=== PATIENT | female | born 1970 | race Caucasian/White ===

== ENCOUNTER 2022-02-06 12:36 | Emergency (ER) | payer MEDICARE ==
[~2022-02-06] VITALS: Ht 170.2 cm; Wt 75.0 kg
[2022-02-06] VITALS (8 sets, daily range): BP systolic 93–136; BP diastolic 74–89
[2022-02-06] MEDS ORDERED: ULTRAM50 MG PO (15:24)
[2022-02-06] MEDS ORDERED: BACLOFEN20 MG PO (15:26)
== END 2022-02-06 16:08 | disposition home or self-care (01) ==
LOC: ED 12:36
DX: S93.601A Unspecified sprain of right foot, initial encounter (principal); S93.401A Sprain of unspecified ligament of right ankle, initial encounter; X50.0XXA Overexertion from strenuous movement or load, initial encounter; Y92.009 Unspecified place in unspecified non-institutional (private) residence as the place of occurrence of the external cause; Z86.73 Personal history of transient ischemic attack (TIA), and cerebral infarction without residual deficits

== ENCOUNTER 2022-08-13 14:20 | Emergency (ER) | payer MEDICARE ==
[2022-08-13] VITALS (9 sets, daily range): BP systolic 109–134; BP diastolic 74–95
[~2022-08-13] VITALS: Ht 170.2 cm; Wt 54.0 kg
[~2022-08-13 14:20] MED LIST: BACLOFEN20 MG PO; ULTRAM50 MG PO
[2022-08-13 16:46] LABS: HEMATOCRIT 41.1 % (37.0-47.0); MEAN CELL VOLUME 96.9 fL CALC (80.0-100.0); MEAN CORPUSCULAR HGB CONC 34.1 g/dL CAL (32.0-36.0); NEUT# 2.8 thou/uL (2.00-7.15); RED BLOOD COUNT 4.24 mill/uL (4.20-5.60); RED CELL DISTRI WIDTH 12.8 % (11.5-15.5)
[2022-08-13 17:01] LABS: ALBUMIN 4.8 g/dL (3.2-5.0); ALKALINE PHOSPHATASE 63 u/l (38-126); ANION GAP 16 (6-22 (CALC)); BILIRUBIN, TOTAL 0.6 mg/dL (0.0-1.4); BUN 19 mg/dL (7-17); BUN/CREATININE RATIO 19 (12-20 (CALC)); CARBON DIOXIDE 20 mmol/l (22-30); CHLORIDE 106 mmol/l (95-108); GFR FOR AFR.AMER. > 60 ML/MIN (>=60 (CALC)); GFR OTHER RACES 58 ML/MIN (>=60 (CALC)); POTASSIUM 3.9 mmol/l (3.5-5.1); SGOT/AST 33 u/l (14-36); SODIUM 139 mmol/l (137-146); TOTAL PROTEIN 7.7 g/dL (6.3-8.2)
[2022-08-13] MEDS ORDERED: ULTRAM50 M1 PO ×3 (18:17→18:23)
== END 2022-08-13 19:24 | disposition home or self-care (01) ==
LOC: ED 14:20
PROVIDERS: Emergency Medicine
DX: M54.50 Low back pain, unspecified (principal); M54.6 Pain in thoracic spine; Z86.73 Personal history of transient ischemic attack (TIA), and cerebral infarction without residual deficits

== ENCOUNTER 2022-10-13 11:24 | Emergency (ER) | payer MEDICARE ==
[~2022-10-13] VITALS: Ht 170.2 cm; Wt 55.0 kg
[~2022-10-13 11:24] MED LIST changes: +ULTRAM50 M1 PO
[2022-10-13 12:05] LABS: HEMATOCRIT 37.7 % (37.0-47.0); IMMATURE GRANULOCYTES 0.3 % (0.0-5.0); MEAN CORPUSCULAR HGB 34.5 pG CALC (26.0-32.0); MEAN CORPUSCULAR HGB CONC 34.5 g/dL CAL (32.0-36.0); NEUT# 4.57 thou/uL (2.00-7.15); RED BLOOD COUNT 3.77 mill/uL (4.20-5.60); RED CELL DISTRI WIDTH 12.7 % (11.5-15.5)
[2022-10-13 12:20] LABS: ALBUMIN 4.7 g/dL (3.2-5.0); ALKALINE PHOSPHATASE 60 u/l (38-126); ANION GAP 16 (6-22 (CALC)); BUN 14 mg/dL (7-17); BUN/CREATININE RATIO 16 (12-20 (CALC)); CARBON DIOXIDE 22 mmol/l (22-30); CHLORIDE 108 mmol/l (95-108); CREATININE 0.9 mg/dL (0.5-1.0); GFR FOR AFR.AMER. > 60 ML/MIN (>=60 (CALC)); GFR OTHER RACES > 60 ML/MIN (>=60 (CALC)); POTASSIUM 4.3 mmol/l (3.5-5.1); SGOT/AST 26 u/l (14-36); SODIUM 142 mmol/l (137-146); TOTAL PROTEIN 7.2 g/dL (6.3-8.2)
[2022-10-13 12:24] LABS: BILIRUBIN, TOTAL 1.1 mg/dL (0.0-1.4)
[2022-10-13] MEDS ORDERED: XANAX0.5 MG PO (12:54)
[2022-10-13] MEDS ORDERED: XANAX1 MG PO (12:54)
[2022-10-13 13:00] VITALS: BP 133/97
[2022-10-13 13:38] VITALS: BP 121/88
[2022-10-13 14:00] VITALS: BP 139/97
[2022-10-13 14:30] VITALS: BP 115/81
[2022-10-13 15:00] VITALS: BP 115/81
== END 2022-10-13 15:00 | disposition short-term general hospital (02) ==
LOC: ED 11:24
PROVIDERS: Family Medicine
DX: S72.001A Fracture of unspecified part of neck of right femur, initial encounter for closed fracture (principal); W01.0XXA Fall on same level from slipping, tripping and stumbling without subsequent striking against object, initial encounter; Y92.009 Unspecified place in unspecified non-institutional (private) residence as the place of occurrence of the external cause; Z86.73 Personal history of transient ischemic attack (TIA), and cerebral infarction without residual deficits

== ENCOUNTER 2023-01-09 07:37 | Day surgery (SDC) | payer MEDICARE ==
[~2023-01-09 07:37] MED LIST changes: +CARAFATE1 GM PO; +PROTONIX20 M1 PO; +XANAX0.5 MG PO; +XANAX1 MG PO
[2023-01-09] MEDS ORDERED: OXYCODO-APAP1 TA2 PO (07:56)
[2023-01-09 11:06] VITALS: BP 116/70
== END 2023-01-09 10:55 | disposition home or self-care (01) ==
LOC: ENDO 07:37 → ORM 10:10 → ENDO 10:55 → ORM 12:15
PROVIDERS: ATTEND Internal Medicine Gastroenterology
PROC: 0DB48ZX Excision of Esophagogastric Junction, Via Natural or Artificial Opening Endoscopic, Diagnostic (ICD-10-PCS; principal; 2023-01-09)
PROC: 0DB68ZX Excision of Stomach, Via Natural or Artificial Opening Endoscopic, Diagnostic (ICD-10-PCS; 2023-01-09)
DX: R10.13 Epigastric pain (principal); K25.9 Gastric ulcer, unspecified as acute or chronic, without hemorrhage or perforation; K29.50 Unspecified chronic gastritis without bleeding; K31.9 Disease of stomach and duodenum, unspecified; Z87.11 Personal history of peptic ulcer disease

== ENCOUNTER 2023-01-16 10:20 | Day surgery (SDC) | payer MEDICARE ==
[~2023-01-16] VITALS: Ht 167.6 cm; Wt 49.9 kg
[~2023-01-16 10:20] MED LIST changes: +OXYCODO-APAP1 TA2 PO
[2023-01-16 12:51] VITALS: BP 100/72
== END 2023-01-16 12:20 | disposition home or self-care (01) ==
LOC: ENDO 10:20 → ORM 12:45 → ENDO 12:45 → ORM 14:05
PROVIDERS: ATTEND Internal Medicine Gastroenterology
PROC: 0DJD8ZZ Inspection of Lower Intestinal Tract, Via Natural or Artificial Opening Endoscopic (ICD-10-PCS; principal; 2023-01-16)
DX: Z12.11 Encounter for screening for malignant neoplasm of colon (principal); K64.8 Other hemorrhoids; Z87.11 Personal history of peptic ulcer disease